=== PATIENT | male | born 1950 ===

== ENCOUNTER 2023-03-25 07:33 | Day surgery (SDC) | payer OTHER ==
[~2023-03-25] VITALS: Ht 180.3 cm; Wt 89.8 kg
[~2023-03-25 07:33] MED LIST: CHILDREN'S ASPI81 MG PO; DIOVAN320 MG PO; TOPROL XL100 M1 PO
== END 2023-03-25 17:15 | disposition home or self-care (01) ==
LOC: CIR.AMB 07:33
PROVIDERS: ATTEND Colon & Rectal Surgery
DX: K64.4 Residual hemorrhoidal skin tags (principal); K64.8 Other hemorrhoids; K60.0 Acute anal fissure; K92.1 Melena; Z20.822 Contact with and (suspected) exposure to COVID-19; I10 Essential (primary) hypertension